=== PATIENT | female | born 1940 | race Caucasian/White ===

== ENCOUNTER → 2017-04-24 | Outpatient (CLI) | payer OTHER ==
[~2017-04-24] MED LIST: ACET-1311 PO; ASPEC325 PO; FRS/40 PO; HYDR-4079 PO; LISI5TAB3 PO; LOVA20TA4 PO; LRS10 PO; METO25TA56 PO; MULT-506 PO; SENN-61 PO; TEMA15CA4 PO
[2017-04-24 12:08] LABS: BASO % 0.2 %; BASO ABS # 0.03 K/uL (0-0.2); EOS % 0.4 %; EOS ABS # 0.06 K/uL (0-0.5); HEMATOCRIT 42.7 % (37-47); HEMOGLOBIN 13.8 g/dL (12.0-16.0); IG# 0.03 K/uL (0.00-0.02); LYMPH % 6.1 %; LYMPH ABS # 0.82 K/uL (1.2-3.4); MEAN CELL VOLUME 97.9 fL (80-100); MEAN CORPUSCULAR HEMOGLOBIN 31.7 pg (25-34); MEAN CORPUSCULAR HGB CONC 32.3 g/dl (32-36); MEAN PLATELET VOLUME 11.2 fL (7.4-10.4); MONO % 6.3 %; MONO ABS # 0.85 K/uL (0.11-0.59); NEUT % 86.8 %; NEUT ABS # 11.71 K/uL (1.4-6.5); PLATELET COUNT 278 K/uL (130-400); RED CELL DISTRIBUTION WIDTH CV 14.5 % (11.5-14.5)
[2017-04-24 12:53] LABS: ALBUMIN 3.3 gm/dl (3.4-5.0); ALT/SGPT 20 U/L (12-78); AST/SGOT 11 U/L (15-37); BLOOD UREA NITROGEN 19 mg/dl (7-18); CALCIUM 9.1 mg/dl (8.5-10.1); CARBON DIOXIDE 32 mmol/L (21-32); CREATININE 0.61 mg/dl (0.60-1.20); GLUCOSE 104 mg/dl (70-99); POTASSIUM 4.1 mmol/L (3.5-5.1); SODIUM 136 mmol/L (136-145); TOTAL PROTEIN 7.6 gm/dl (6.4-8.2)
[2017-04-24 12:54] LABS: ALKALINE PHOSPHATASE 80 U/L (45-117); CHOLESTEROL 100 mg/dl (0-200); LDL CHOLESTEROL CALCULATED 33 mg/dl
== END | disposition home or self-care (01) ==
LOC: C.LAB1850 10:11
PROVIDERS: ATTEND Internal Medicine
DX: I89.0 Lymphedema, not elsewhere classified (principal); E78.5 Hyperlipidemia, unspecified

== ENCOUNTER 2017-11-23 19:38 | Emergency (ER) | payer OTHER ==
[~2017-11-23] VITALS: Ht 154.9 cm; Wt 67.2 kg
[2017-11-23 19:45] VITALS: TEMP 36.7; Ht 154.9 cm; Wt 67.2 kg
[2017-11-23] MEDS ORDERED: KETOROLAC TROMETHAMINE 30 MG/ML VIAL IV STA (19:45)
[2017-11-23] MEDS ORDERED: ACETAMINOPHEN 500 MG TAB PO STA (19:45)
[2017-11-23] MEDS ORDERED: ONDANSETRON INJ 2 MG/ML 2 ML VIAL IV STA (19:45)
[2017-11-23] MEDS ORDERED: MoRPHine SULFATE 4 MG/ML 1 ML CARP\\VIAL IV STA (19:45)
--- NOTE | 2017-11-23 19:56 | EMERGENCY ROOM VISIT NOTE ---
History Report prepared by Chau: Jamie Lezama Under the Supervision of: Dr. Layton Fall M.D. First contact with patient: 19:40 Stated Complaint: BACK PAIN History of Present Illness The patient is a 77 year old white female with a past medical history of arthritic hips who presents to the Emergency Room with complaints of constant back pain that began on Saturday, 5 days ago. The patient states that the pain does radiate into the right side of her abdomen. She notes that she does have pain medications at home, but nothing is relieving her pain. The pain is worsened with any type of movement. She denies any bowel or urinary irregularities, hematuria, recent fall, nausea or vomiting. She has pain mediation secondary to chronic leg and hip pain. Source of History: patient Onset: 5 days ago Position: back Timing: constant Modifying Factors (Worsening): movement Modifying Factors (Relieving): other (N/A) Associated Symptoms: No nausea, No vomiting, No diarrhea, No urinary symptoms Review of Systems See HPI for pertinent positives and negatives. A total of ten systems were reviewed and were otherwise negative. Past Medical & Surgical Arthritis of hips. Family History Omitted secondary to age. Social History Smoking Status: Smoker Current Status UNK Housing Status: lives alone Occupation Status: retired Current/Historical Medications Scheduled Aspirin (Aspirin Ec), 325 MG PO DAILY Baclofen (Lioresal), 2.5 MG PO QID Clotrimazole W/ Betamethasone (Lotrisone), 1 APPLN TOP BID Furosemide (Lasix), 80 MG PO AMPM Lovastatin (Mevacor), 20 MG PO AMPM Metoprolol Tartrate (Lopressor) (Lopressor), 12.5 MG PO BID Morphine Sulfate (Morphine Sulfate Er), 30 MG PO TID Multivitamin (Multivitamin), 1 TAB PO DAILY Potassium Chloride (Potassium Chloride Er), 20 MEQ PO BID Spironolactone (Aldactone), 25 MG PO DAILY Scheduled PRN Hydrocodone/Acetaminophen 10MG/325MG ([place] 10MG/325MG), 1 TAB PO Q8 PRN for BREAKTHROUGH PAIN Allergies Coded Allergies: Latex (Verified Allergy, Unknown, UNKNOWN, 11/23/17) Aspirin (Verified Adverse Reaction, Unknown, GI UPSET - TOLERATES ENTERIC COATED, 05/06/09) Uncoded Allergies: DOXYCYCLINE HYCLATE (Adverse Reaction, Intermediate, N/V, 11/23/17) Physical Exam Vital Signs Date Time Temp Pulse Resp B/P (MAP) Pulse Ox O2 Delivery O2 Flow Rate FiO2 11/23/17 21:34 88 102/43 93 Room Air 11/23/17 19:45 36.7 95 20 170/117 97 Room Air Physical Exam GENERAL: Awake, alert, well-appearing, NAD HENT: Normocephalic. atraumatic. EYES: Normal conjunctiva. Sclera non-icteric. PERRL. No anisocoria. NECK: Supple. No nuchal rigidity. FROM. RESPIRATORY: CTAB, no rhonchi, wheezing, crackles. No reproducible chest wall TTP. CARDIAC: RRR, no MRG ABDOMEN: Soft, NTND, BS+ MSK: No chest wall TTP, 1-2+ b/l LE swelling. Midline low thoracic back pain present. No perispinal pain. abdomen is soft, No saddle anesthesia. NEURO: GCS 15, CN 2-12 intact, moves all 4s on command but limited movement of b /l LEs, no sensory deficits SKIN: Redness b/l LEs Medical Decision & Procedures ER Provider Diagnostic Interpretation: Radiology results as stated below per my review and radiologist interpretation: CT LUMBAR SPINE WITHOUT CT DOSE: 1338.81 mGy.cm CLINICAL HISTORY: Severe back pain TECHNIQUE: Helical images were acquired in transverse plane. Reformatted sagittal and coronal images were reviewed. A dose lowering technique was utilized adhering to the principles of ALARA. CONTRAST: No contrast was administered COMPARISON STUDY: MRI performed January 2007 FINDINGS: Parenchymal opacities at the right lung base are likely atelectatic. L1-2 level: There is no evidence of significant disc bulge or focal herniation. There is no evidence of spinal or foraminal stenosis. L2-3 level: There is a mild circumferential disc bulge. There is mild spinal stenosis. There is minor bilateral foraminal narrowing. L3-4 level: There is a mild circumferential disc bulge. There is mild spinal stenosis. There is no significant foraminal narrowing L4-5 level: There is a mild circumferential disc bulge. There is mild spinal stenosis. There is no significant foraminal narrowing L5-S1 level: There is no evidence of significant disc bulge or focal herniation. There is no evidence of spinal or foraminal stenosis. No acute fractures or traumatic subluxations are visualized. There is posterior subcutaneous edema. There is a mild lumbar levoscoliosis. There are severe arthritic changes within the hips as visualized on the professional sports scout topogram. IMPRESSION: 1. No acute fractures or traumatic subluxations 2. Mild multilevel spondylitic changes with mild multilevel spinal stenosis. Electronically signed by: Eliu Nunes M.D. 11/23/2017 8:49 PM Dictated Date/Time: 11/23/2017 8:[address] THORACIC SPINE WITHOUT CT DOSE: CLINICAL HISTORY: Severe back pain. TECHNIQUE: Helical images were acquired in the transverse plane. Sagittal and coronal reformatted imaging was performed. A dose lowering technique was utilized adhering to the principles of ALARA. COMPARISON STUDY: None. FINDINGS: There are postsurgical changes present within the lower cervical spine. The bones are osteopenic. There is an old inferior endplate T6 compression deformity. No acute fractures or subluxations are visualized. There are multilevel degenerative changes present. No destructive lesions are visualized. There is a 2 cm hypodensity within the right hepatic lobe, likely representing a cyst. There is a 7 mm left upper lobe pulmonary nodule. There is a right apical parenchymal opacities likely representing pleural-parenchymal scarring. There is an 8 mm pleural-based right upper lobe nodule. There is an adjacent 7 mm right upper lobe pulmonary nodule. There is an 8mm right lower lobe pulmonary nodule. There are partially visualized subcentimeter left lower lobe and left upper lobe pulmonary nodules. There is pulmonary emphysema. There is right hilar enlargement with thickening of the right lower bronchovascular bundle. There is right lower lobe interstitial edema. There is narrowing of the right lower lobe bronchi. A neoplastic process cannot be excluded. Following consultation is recommended. IMPRESSION: 1. Old inferior endplate T6 compression deformity 2. No acute fractures or subluxations identified 3. Multilevel degenerative changes 4. Right hilar enlargement with narrowing of the right lower lobe bronchi, and thickening of the right lower bronchovascular bundles. In addition there is right lower lobe interstitial thickening/edema. A neoplastic process cannot be excluded and pulmonary consultation is recommended in follow-up. 5. Multiple scattered subcentimeter bilateral pulmonary nodules Electronically signed by: Eliu Nunes M.D. 11/23/2017 8:51 PM Dictated Date/Time: 11/23/2017 8:38 PM Laboratory Results 11/23/17 20:00 Red Blood Count 4.20, Mean Corpuscular Volume 97.1, Mean Corpuscular Hemoglobin 32.1, Mean Corpuscular Hemoglobin Concent 33.1, Mean Platelet Volume 10.7, Neutrophils (%) (Auto) 85.6, Lymphocytes (%) (Auto) 5.6, Monocytes (%) (Auto) 8.2, Eosinophils (%) (Auto) 0.2, Basophils (%) (Auto) 0.1, Neutrophils # (Auto) 11.97, Lymphocytes # (Auto) 0.78, Monocytes # (Auto) 1.14, Eosinophils # (Auto) 0.03, Basophils # (Auto) 0.02 11/23/17 20:00 Test 11/23/17 20:00 White Blood Count 13.98 K/uL (4.8-10.8) Red Blood Count 4.20 M/uL (4.2-5.4) Hemoglobin 13.5 g/dL (12.0-16.0) Hematocrit 40.8 % (37-47) Mean Corpuscular Volume 97.1 fL (80-100) Mean Corpuscular Hemoglobin 32.1 pg (25-34) Mean Corpuscular Hemoglobin Concent 33.1 g/dl (32-36) Platelet Count 207 K/uL (130-400) Mean Platelet Volume 10.7 fL (7.4-10.4) Neutrophils (%) (Auto) 85.6 % Lymphocytes (%) (Auto) 5.6 % Monocytes (%) (Auto) 8.2 % Eosinophils (%) (Auto) 0.2 % Basophils (%) (Auto) 0.1 % Neutrophils # (Auto) 11.97 K/uL (1.4-6.5) Lymphocytes # (Auto) 0.78 K/uL (1.2-3.4) Monocytes # (Auto) 1.14 K/uL (0.11-0.59) Eosinophils # (Auto) 0.03 K/uL (0-0.5) Basophils # (Auto) 0.02 K/uL (0-0.2) RDW Standard Deviation 53.9 fL (36.4-46.3) RDW Coefficient of Variation 15.1 % (11.5-14.5) Immature Granulocyte % (Auto) 0.3 % Immature Granulocyte # (Auto) 0.04 K/uL (0.00-0.02) Anion Gap 8.0 mmol/L (3-11) Est Creatinine Clear Calc Drug Dose 43.0 ml/min Estimated GFR () 64.6 Estimated GFR (Non- 55.7 BUN/Creatinine Ratio 10.7 (10-20) Calcium Level 9.2 mg/dl (8.5-10.1) Laboratory results reviewed by me Medications Administered Medications (Trade) Dose Ordered Sig/[place] Route Start Time Stop Time Status Last Admin Dose Admin Ondansetron HCl (Zofran Inj) 4 mg NOW STAT IV 11/23/17 19:45 11/23/17 19:49 DC 11/23/17 20:09 4 MG Ketorolac Tromethamine (Toradol Inj) 30 mg NOW STAT IV 11/23/17 19:45 11/23/17 19:49 DC 11/23/17 20:10 30 MG Acetaminophen (Tylenol Tab) 1,000 mg NOW STAT PO 11/23/17 19:45 11/23/17 19:49 DC 11/23/17 20:09 1,000 MG Morphine Sulfate (MoRPHine SULFATE INJ) 4 mg NOW STAT IV 11/23/17 19:45 11/23/17 19:49 DC 11/23/17 20:09 4 MG Tramadol HCl (Ultram Tab) 50 mg NOW STAT PO 11/23/17 21:06 11/23/17 21:07 DC 11/23/17 21:34 50 MG Tramadol HCl (Ultram Home Pack) 1 homepack UD ONCE PO 11/23/17 22:30 11/23/17 22:31 DC 11/23/17 22:25 1 HOMEPACK ED Course 1940: The patient was evaluated in room B3. A complete history and physical exam was performed. 2103: I checked on the patient. There are 5 family members at bedside at this time. She feels improved but is still having some pain. I will order Tramadol. 2230: I reevaluated the patient. Discussed results and discharge instructions: She verbalized understanding and agreement. The patient is ready for discharge. Medical Decision The patient is a 77 year old white female with a past medical history of arthritic hips who presents to the Emergency Room with complaints of constant back pain that began on Saturday, 5 days ago. The patient states that the pain does radiate into the right side of her abdomen. Nursing notes reviewed. Ancillary studies and prior records reviewed. Differential diagnosis: Etiologies such as musculoskeletal, disc herniation, fracture, aortic disease, metastatic disease, cord compression, discitis, infection, renal colic, gastrointestinal, acute exacerbation of chronic back pain, sciatica, cauda equina, as well as others were entertained. Patient was seen and evaluated the bedside. The patient was complaining of some back pain. It is been ongoing for approximately 5 days and persistently worsening. The patient is virtually wheelchair-bound as the patient does have limited use of her bilateral lower extremities and has been for approximately 1 decade. The patient does have some chronic redness of the right and left lower extremities but this is also chronic. The patient does have some midline mid to low thoracic T-spine tenderness. Patient did have blood work completed along with CTs of the thoracic and lumbar spine. The patient's thoracic spine does show an old T6 inferior endplate fracture. The patient is not showing any other acute findings of subluxations or fractures of the thoracic or lumbar spine. There were some concerning issues for possible malignancy of the lungs. I did convey this to the patient as well as the low back fracture. The patient was unaware of an old fracture. Patient is feeling improved. The patient was given additional medication. I do not believe that the patient requires further imaging at this time as the patient has had no change in the strength of her bilateral lower extremities and do not the patient denies any urinary symptoms so urine was not obtained at this time. I did have the major case detective talk to the patient in order to see about transportation as the patient does live by herself and does have some limited transportation did discuss the possibility of pain management clinic. Patient was given strict follow-up, discharge, and return precautions. All questions were answered. Patient was deemed suitable for outpatient follow-up at this time. Patient agreed with the plan of care and was safely discharged home. Medication Reconcilliation Current Medication List: was personally reviewed by me Blood Pressure Screening Patient's blood pressure: Elevated blood pressure Blood pressure disposition: Elevated BP felt to be situational Impression Primary Impression: Back pain Additional Impressions: Defect of endplate of vertebra Hilar enlargement Scribe Attestation The scribe's documentation has been prepared under my direction and personally reviewed by me in its entirety. I confirm that the note above accurately reflects all work, treatment, procedures, and medical decision making performed by me. Departure Information Dispostion Home / Self-Care Prescriptions Lidocaine (LIDOCAINE) 5 % Pad 1 PATCH TD QD Y for Pain, #1 BOX Prov: Layton Fall M.D. 11/23/17 Tramadol Hcl (ULTRAM) 50 Mg Tab 25 MG PO Q8H, #6 TAB PRN PAIN Prov: Layton Fall M.D. 11/23/17 Referrals Pro,Abdirizak Anthony M.D. (PCP) Patient Instructions Back Pain - [facility], Back Pain Rel[facility], [facility] Additional Instructions Please return to the emergency department if you have worsening or recurrent symptoms not amenable to at-home treatment. Please call for a follow-up appointment with her primary care physician. Please take your medications as prescribed. If you have other concerns and/or complaints please feel free to also call your primary care physician's office or return the ED for further evaluation, management, and treatment. You may apply moist heat and/or ice to the area. He may consider topicals such as BenGay, Biofreeze, or icy hot. If you do have persistent symptoms you may consider obtaining a referral for physical therapy. Consider ice and/or warm heat to help with any of your discomfort. Please follow-up with your PCP and discuss the possibility of seeing pain management. Take your medications as prescribed. As discussed please follow-up with your PCP as there were some findings on your CT scan that were discussed and you should follow-up with your PCP and possibly a electrophysiology nurse practitioner for further evaluation of the enlarged right hilum. You have been examined and treated today on an emergency basis only. This is not a substitute for, or an effort to provide, complete comprehensive medical care. It is impossible to recognize and treat all injuries or illnesses in a single emergency department visit. It is therefore important that you follow up closely with [facility], your PCP, and/or your specialist(s). Call as soon as possible for an appointment. Thank you for your time and consideration. I look forward to speaking with you again soon. Please don't hesitate to call us if you have any questions. Problem Qualifiers Primary Impression: Back pain Back pain location: thoracic back pain Chronicity: acute Back pain laterality: midline Qualified Codes: M54.6 - Pain in thoracic spine
[2017-11-23 20:10] LABS: BASO % 0.1 %; BASO ABS # 0.02 K/uL (0-0.2); EOS % 0.2 %; EOS ABS # 0.03 K/uL (0-0.5); HEMATOCRIT 40.8 % (37-47); HEMOGLOBIN 13.5 g/dL (12.0-16.0); IG# 0.04 K/uL (0.00-0.02); LYMPH % 5.6 %; LYMPH ABS # 0.78 K/uL (1.2-3.4); MEAN CELL VOLUME 97.1 fL (80-100); MEAN CORPUSCULAR HEMOGLOBIN 32.1 pg (25-34); MEAN CORPUSCULAR HGB CONC 33.1 g/dl (32-36); MEAN PLATELET VOLUME 10.7 fL (7.4-10.4); MONO % 8.2 %; MONO ABS # 1.14 K/uL (0.11-0.59); NEUT % 85.6 %; NEUT ABS # 11.97 K/uL (1.4-6.5); PLATELET COUNT 207 K/uL (130-400); RED CELL DISTRIBUTION WIDTH CV 15.1 % (11.5-14.5); RED CELL DISTRIBUTION WIDTH SD 53.9 fL (36.4-46.3); WHITE BLOOD COUNT 13.98 K/uL (4.8-10.8)
[2017-11-23 20:26] LABS: CALCIUM 9.2 mg/dl (8.5-10.1); CREATININE 0.99 mg/dl (0.60-1.20); POTASSIUM 3.8 mmol/L (3.5-5.1)
--- NOTE | 2017-11-23 20:50 | DIAGNOSTIC IMAGING REPORT ---
CT LUMBAR SPINE WITHOUT CT DOSE: 1338.81 mGy.cm CLINICAL HISTORY: Severe back pain TECHNIQUE: Helical images were acquired in transverse plane. Reformatted sagittal and coronal images were reviewed. A dose lowering technique was utilized adhering to the principles of ALARA. CONTRAST: No contrast was administered COMPARISON STUDY: MRI performed January 2007 FINDINGS: Parenchymal opacities at the right lung base are likely atelectatic. L1-2 level: There is no evidence of significant disc bulge or focal herniation. There is no evidence of spinal or foraminal stenosis. L2-3 level: There is a mild circumferential disc bulge. There is mild spinal stenosis. There is minor bilateral foraminal narrowing. L3-4 level: There is a mild circumferential disc bulge. There is mild spinal stenosis. There is no significant foraminal narrowing L4-5 level: There is a mild circumferential disc bulge. There is mild spinal stenosis. There is no significant foraminal narrowing L5-S1 level: There is no evidence of significant disc bulge or focal herniation. There is no evidence of spinal or foraminal stenosis. No acute fractures or traumatic subluxations are visualized. There is posterior subcutaneous edema. There is a mild lumbar levoscoliosis. There are severe arthritic changes within the hips as visualized on the argon tester topogram. IMPRESSION: 1. No acute fractures or traumatic subluxations 2. Mild multilevel spondylitic changes with mild multilevel spinal stenosis. Electronically signed by: Eliu Nunes M.D. 11/23/2017 8:49 PM Dictated Date/Time: 11/23/2017 8:34 PM
--- NOTE | 2017-11-23 20:52 | DIAGNOSTIC IMAGING REPORT ---
CT THORACIC SPINE WITHOUT CT DOSE: CLINICAL HISTORY: Severe back pain. TECHNIQUE: Helical images were acquired in the transverse plane. Sagittal and coronal reformatted imaging was performed. A dose lowering technique was utilized adhering to the principles of ALARA. COMPARISON STUDY: None. FINDINGS: There are postsurgical changes present within the lower cervical spine. The bones are osteopenic. There is an old inferior endplate T6 compression deformity. No acute fractures or subluxations are visualized. There are multilevel degenerative changes present. No destructive lesions are visualized. There is a 2 cm hypodensity within the right hepatic lobe, likely representing a cyst. There is a 7 mm left upper lobe pulmonary nodule. There is a right apical parenchymal opacities likely representing pleural-parenchymal scarring. There is an 8 mm pleural-based right upper lobe nodule. There is an adjacent 7 mm right upper lobe pulmonary nodule. There is an 8mm right lower lobe pulmonary nodule. There are partially visualized subcentimeter left lower lobe and left upper lobe pulmonary nodules. There is pulmonary emphysema. There is right hilar enlargement with thickening of the right lower bronchovascular bundle. There is right lower lobe interstitial edema. There is narrowing of the right lower lobe bronchi. A neoplastic process cannot be excluded. Following consultation is recommended. IMPRESSION: 1. Old inferior endplate T6 compression deformity 2. No acute fractures or subluxations identified 3. Multilevel degenerative changes 4. Right hilar enlargement with narrowing of the right lower lobe bronchi, and thickening of the right lower bronchovascular bundles. In addition there is right lower lobe interstitial thickening/edema. A neoplastic process cannot be excluded and pulmonary consultation is recommended in follow-up. 5. Multiple scattered subcentimeter bilateral pulmonary nodules Electronically signed by: Eliu Nunes M.D. 11/23/2017 8:51 PM Dictated Date/Time: 11/23/2017 8:38 PM
[2017-11-23] MEDS ORDERED: TRAMADOL HCL 50 MG TAB PO STA (21:06)
[2017-11-23] MEDS ORDERED: LIDO1PAD2 TD ×2 (21:59→22:35)
[2017-11-23] MEDS ORDERED: TRAM-453 PO ×2 (21:59→22:35)
[2017-11-23] MEDS ORDERED: BACL10TA PO (22:02)
[2017-11-23] MEDS ORDERED: ASPI325T39 PO (22:04)
[2017-11-23] MEDS ORDERED: MORP1TAB12 PO (22:10)
[2017-11-23] MEDS ORDERED: POTA-74 PO (22:12)
[2017-11-23] MEDS ORDERED: SPIR25TA PO (22:13)
[2017-11-23] MEDS ORDERED: CLOTCRE33 TOP (22:15)
[2017-11-23] MEDS ORDERED: TRAMADOL HCL 50 MG HOME PACK PO ONE (22:30)
[2017-11-23 22:47] VITALS: BP 88/42; PULSE 90; O2SAT 91
== END 2017-11-23 22:49 | disposition home or self-care (01) ==
LOC: C.EDB 19:38
DX: M54.6 Pain in thoracic spine (principal); M53.84 Other specified dorsopathies, thoracic region; R59.0 Localized enlarged lymph nodes; Z79.82 Long term (current) use of aspirin; Z79.891 Long term (current) use of opiate analgesic; Z79.899 Other long term (current) drug therapy; Z88.1 Allergy status to other antibiotic agents; Z88.6 Allergy status to analgesic agent; Z91.040 Latex allergy status; F17.200 Nicotine dependence, unspecified, uncomplicated